=== PATIENT | female | born 1990 | race Caucasian/White ===

== ENCOUNTER 2018-04-01 02:36 | Emergency (ER) | payer OTHER ==
[~2018-04-01] VITALS: Ht 167.6 cm; Wt 54.4 kg
[~2018-04-01 02:36] MED LIST: IBUP800 PO; OXYACE5T PO; Verotin-Gr Cap1 EACH PO
== END 2018-04-01 05:14 | disposition home or self-care (01) ==
LOC: ER 02:36
DX: S71.111A Laceration without foreign body, right thigh, initial encounter (principal); F17.210 Nicotine dependence, cigarettes, uncomplicated; W26.0XXA Contact with knife, initial encounter
CPT/HCPCS: 12002; 99282

== ENCOUNTER 2019-06-11 18:56 | Emergency (ER) | payer OTHER ==
[~2019-06-11] VITALS: Ht 167.6 cm; Wt 59.4 kg
== END 2019-06-11 21:36 | disposition home or self-care (01) ==
LOC: ER 18:56
DX: M79.604 Pain in right leg (principal); V00.131A Fall from skateboard, initial encounter; F17.290 Nicotine dependence, other tobacco product, uncomplicated
CPT/HCPCS: 73562-RT; 73610; 99283-25

== ENCOUNTER 2020-07-04 20:42 | Emergency (ER) | payer OTHER ==
[~2020-07-04] VITALS: Ht 167.6 cm; Wt 59.0 kg
== END 2020-07-04 22:57 | disposition home or self-care (01) ==
LOC: ER 20:42
DX: R21 Rash and other nonspecific skin eruption (principal); Z53.21 Procedure and treatment not carried out due to patient leaving prior to being seen by health care provider
CPT/HCPCS: 99282

== ENCOUNTER 2020-12-29 20:28 | Inpatient (IN) | payer OTHER ==
[~2020-12-29] VITALS: Ht 167.6 cm; Wt 91.0 kg
[2020-12-29 21:18] LABS: BASOPHILS ABSOLUTE AUTO 0.06 K/mm3 (0.00-0.23); BASOPHILS PERCENT AUTO 0 % (0-2); EOSINOPHILS ABSOLUTE AUTO 0.06 K/mm3 (0.00-0.68); EOSINOPHILS PERCENT AUTO 0 % (0-6); Hematocrit 21.6 % (33.0-51.0); Hemoglobin 6.2 g/dL (11.5-16.0); IMMATURE GRAN ABSOLUTE AUTO 0.41 K/mm3 (0.00-0.10); IMMATURE GRAN PERCENT AUTO 3 % (0-1); LYMPHOCYTES ABSOLUTE AUTO 2.07 K/mm3 (0.84-5.20); LYMPHOCYTES PERCENT AUTO 14 % (21-46); MONOCYTES ABSOLUTE AUTO 1.07 K/mm3 (0.16-1.47); MONOCYTES PERCENT AUTO 8 % (4-13); Mean Corpuscular HGB 18.5 pg (26.0-34.0); Mean Corpuscular HGB Conc 28.7 g/dL (31.5-36.5); Mean Corpuscular Volume 65 fL (80-100); NEUTROPHILS ABSOLUTE AUTO 10.68 K/mm3 (1.96-9.15); NEUTROPHILS PERCENT AUTO 74 % (41-73); NRBC ABSOLUTE 0.21 K/mm3 (0.00-0.02); NRBC Auto 1.5 /100 WBC (0.0-0.2); Platelet Count 243 K/mm3 (150-400); RDW Coefficient Variation 18.4 % (11.7-14.2); RDW Standard Deviation 42.5 fL (35.1-46.3); Red Blood Cell Count 3.35 M/mm3 (3.80-5.20); White Blood Cell Count 14.35 K/mm3 (4.00-11.30)
[2020-12-29 23:03] LABS: Influenza A, PCR NEGATIVE (NEGATIVE); Influenza B, PCR NEGATIVE (NEGATIVE); Resp Syncytial Virus, PCR NEGATIVE (NEGATIVE); SARS-Cov-2 (COVID-19) PCR, MMC NEGATIVE (NEGATIVE)
[2020-12-29 23:56] LABS: PCO2 Cord - Arterial 54.9 mmHg (40-50); PO2 Cord - Arterial > 13 mmHg (16-20); pH Cord - Arterial 7.29 (7.28-7.35)
[2020-12-29 23:58] LABS: PCO2 Cord - Venous 48.5 mmHg (40-50); pH Umbilical Cord - Venous 7.33 (7.26-7.35)
--- NOTE | 2020-12-30 00:19 | NUR ---
BABY RECOVERING IN NURSERY, PT HAD A GENERAL, AROUSES TO VOICE AND FOLLOWS COMMANDS, BUT IS VERY GROGGY/SLEEPY. MOVING ALL EXTREMETIES. PT UNDERWEAR WERE LEFT ON HER AND RN CUT THEM OFF. AT 0020 SECOND UNIT OF BLOOD IN PER DR SMITH AND NS OPENED UP. AT 0035 TUBING CLEAR AND STAT CBC ORDERED.
--- NOTE | 2020-12-30 00:37 | NUR ---
dr pérez in pacu, report to give 3rd unit of blood if the now stat cbc hemaglogin is below 7, if 7 or above hold the 3rd unit
--- NOTE | 2020-12-30 01:33 | NUR ---
PACU TRANS: IN PACU AT 0019 DR SMITH LEFT AT 0024 OUT TO ROOM AT 0121 BY BRENNAN ZUÑIGA RNC, REPORT TO STANFORD WHITNEY RN, PT TRANSFERED TO ROOM 130 VIA BED
[2020-12-30 02:15] LABS: BASOPHILS ABSOLUTE AUTO 0.11 K/mm3 (0.00-0.23); BASOPHILS PERCENT AUTO 1 % (0-2); EOSINOPHILS ABSOLUTE AUTO 0.02 K/mm3 (0.00-0.68); EOSINOPHILS PERCENT AUTO 0 % (0-6); Hematocrit 26.6 % (33.0-51.0); Hemoglobin 7.6 g/dL (11.5-16.0); IMMATURE GRAN ABSOLUTE AUTO 0.61 K/mm3 (0.00-0.10); IMMATURE GRAN PERCENT AUTO 4 % (0-1); LYMPHOCYTES ABSOLUTE AUTO 1.53 K/mm3 (0.84-5.20); LYMPHOCYTES PERCENT AUTO 9 % (21-46); MONOCYTES ABSOLUTE AUTO 0.58 K/mm3 (0.16-1.47); MONOCYTES PERCENT AUTO 3 % (4-13); Mean Corpuscular HGB 20.5 pg (26.0-34.0); Mean Corpuscular HGB Conc 28.6 g/dL (31.5-36.5); NEUTROPHILS ABSOLUTE AUTO 14.08 K/mm3 (1.96-9.15); NEUTROPHILS PERCENT AUTO 83 % (41-73); NRBC ABSOLUTE 0.27 K/mm3 (0.00-0.02); NRBC Auto 1.6 /100 WBC (0.0-0.2); RDW Coefficient Variation 21.9 % (11.7-14.2); RDW Standard Deviation 55.8 fL (35.1-46.3); White Blood Cell Count 16.93 K/mm3 (4.00-11.30)
[2020-12-30 02:16] LABS: Mean Corpuscular Volume 72 fL (80-100); Platelet Count 202 K/mm3 (150-400)
[2020-12-30 06:17] LABS: BASOPHILS ABSOLUTE AUTO 0.08 K/mm3 (0.00-0.23); BASOPHILS PERCENT AUTO 0 % (0-2); EOSINOPHILS PERCENT AUTO 0 % (0-6); Hematocrit 27.7 % (33.0-51.0); Hemoglobin 8.2 g/dL (11.5-16.0); IMMATURE GRAN ABSOLUTE AUTO 0.96 K/mm3 (0.00-0.10); IMMATURE GRAN PERCENT AUTO 5 % (0-1); LYMPHOCYTES ABSOLUTE AUTO 1.54 K/mm3 (0.84-5.20); LYMPHOCYTES PERCENT AUTO 8 % (21-46); MONOCYTES ABSOLUTE AUTO 0.67 K/mm3 (0.16-1.47); MONOCYTES PERCENT AUTO 3 % (4-13); Mean Corpuscular HGB 20.6 pg (26.0-34.0); Mean Corpuscular HGB Conc 29.6 g/dL (31.5-36.5); Mean Corpuscular Volume 70 fL (80-100); NEUTROPHILS PERCENT AUTO 84 % (41-73); NRBC ABSOLUTE 0.37 K/mm3 (0.00-0.02); NRBC Auto 1.8 /100 WBC (0.0-0.2); Platelet Count 233 K/mm3 (150-400); RDW Coefficient Variation 21.3 % (11.7-14.2); RDW Standard Deviation 52.4 fL (35.1-46.3); Red Blood Cell Count 3.98 M/mm3 (3.80-5.20); White Blood Cell Count 20.35 K/mm3 (4.00-11.30)
--- NOTE | 2020-12-30 13:53 | NUR ---
UPON ENTERING ROOM PT WAS TEARFUL DUE TO CPS REMOVING HER BABY FROM HER CARE, JUST MINUTES PRIOR. PT STATED THAT SHE FELT LIKE SHE PASSED A BLOOD CLOT. CLOT NOTED DURING PAD CHANGE AND SET ASIDE FOR RN TO LOOK AT. RN NOTIFIED.
--- NOTE | 2020-12-30 14:31 | NUR ---
12/30/20 1431 Destiny Caban VERIFICATIONS: EDIT CHART.
--- NOTE | 2020-12-31 00:31 | NUR ---
pts bales catheter out at 0000 for shower and ambulation, 2000cc out of bales bag
--- NOTE | 2020-12-31 03:26 | NUR ---
STUDIO MODEL CARTARIDGE WASTED WITH GENNA AMIN. 15CC LEFT IN VARTRIDGE VIAL WHEN DUMPED INTO WASTE BUCKET
[2020-12-31 06:10] LABS: HIV SCREEN 4TH GENERATION WRFX Non Reactive (Non Reactive)
--- NOTE | 2020-12-31 18:39 | NUR ---
PT HAD RCS X2 DAYS AGO, PT PERFORMING KINZA CAREAND AMBULATIN TO RESTROOM, ENCOURAGED PT TO COUGH AND DEEP BREATH. PT MEDICATED X2 THIS SHIFT AND AMANDA NAUSEA, TOLORATING PO FOOD AND FLUID WELL. PT C/S INCISION AND STERI STRIPS IN PLACE.
[2021-01-01 05:39] LABS: BASOPHILS PERCENT AUTO 1 % (0-2); EOSINOPHILS ABSOLUTE AUTO 0.34 K/mm3 (0.00-0.68); EOSINOPHILS PERCENT AUTO 2 % (0-6); Hematocrit 24.5 % (33.0-51.0); Hemoglobin 7.1 g/dL (11.5-16.0); IMMATURE GRAN ABSOLUTE AUTO 0.41 K/mm3 (0.00-0.10); IMMATURE GRAN PERCENT AUTO 3 % (0-1); LYMPHOCYTES ABSOLUTE AUTO 2.73 K/mm3 (0.84-5.20); LYMPHOCYTES PERCENT AUTO 19 % (21-46); MONOCYTES ABSOLUTE AUTO 1.01 K/mm3 (0.16-1.47); MONOCYTES PERCENT AUTO 7 % (4-13); Mean Corpuscular HGB 20.6 pg (26.0-34.0); Mean Corpuscular Volume 71 fL (80-100); NEUTROPHILS ABSOLUTE AUTO 9.72 K/mm3 (1.96-9.15); NEUTROPHILS PERCENT AUTO 68 % (41-73); NRBC ABSOLUTE 0.13 K/mm3 (0.00-0.02); NRBC Auto 0.9 /100 WBC (0.0-0.2); Platelet Count 251 K/mm3 (150-400); RDW Coefficient Variation 22.3 % (11.7-14.2); RDW Standard Deviation 53.4 fL (35.1-46.3); Red Blood Cell Count 3.45 M/mm3 (3.80-5.20); White Blood Cell Count 14.31 K/mm3 (4.00-11.30)
[2021-01-01 05:58] LABS: Mean Platelet Volume 10.8 fL (9.1-12.4)
[2021-01-01] MEDS ORDERED: Percocet 5-3251 EACH PO (16:06)
[2021-01-01] MEDS ORDERED: IBUP800 PO (16:06)
--- NOTE | 2021-01-01 16:30 | NUR ---
PT D/C HOSPITAL, D/C WNL, DISCHARGE INSTRUCTIONS REVIEWED AND SIGNED, PT ENCOURAGED TO RETURN 01/03/21 FOR FOLLOW UP APPOINTMENT AND TO CALL AND SCHDULE APPOINTMENT WITH FOR POSTPARTUME CARE. PERSRIPTION SENT WITH PT FOR PERCOCET. PT FATHER PROVIDING TRANSPORTATION.
--- NOTE | 2021-01-03 13:22 | NUR ---
PPFU SCHEDULED FOR TODAY. PT DID NOT SHOW UP, DID NOT CALL. RN CALLED PHONE NUMBER ON FILE, NO ANSWER, UNABLE TO LEAVE VOICEMAIL BECAUSE THE VOICEMAIL BOX IS NOT SET UP.
== END 2021-01-01 16:16 | disposition home or self-care (01) | DRG 787 ==
LOC: OBS 20:28 → BC 20:29 → OBS 21:10 → BC 21:11
PROVIDERS: ADMIT Obstetrics & Gynecology
PROC: 10D00Z1 Extraction of Products of Conception, Low, Open Approach (ICD-10-PCS; principal; 2020-12-29 23:00)
DX: O45.93 Premature separation of placenta, unspecified, third trimester (principal); O99.324 Drug use complicating childbirth; O34.211 Maternal care for low transverse scar from previous cesarean delivery; Z37.0 Single live birth; Z3A.37 37 weeks gestation of pregnancy; O99.334 Smoking (tobacco) complicating childbirth; F17.210 Nicotine dependence, cigarettes, uncomplicated; O99.02 Anemia complicating childbirth; D64.9 Anemia, unspecified; F19.10 Other psychoactive substance abuse, uncomplicated
CPT/HCPCS: 0241U; 36415; 36430; 76805; 82803; 85025; 85460; 86317; 86592; 86762; 86850; 86900; 86901; 86923; 87389; 96372; A9270; J0290; J0330; J0690; J1100; J2250; J2405; J2590; J2704; J2710; J2765; J2791; J3010; J3430; J7030; J7120; P9016

== ENCOUNTER 2024-01-21 12:55 | Inpatient (IN) | payer OTHER ==
[2024-01-21] VITALS (21 sets, daily range): BP systolic 118–159; BP diastolic 63–93
[~2024-01-21] VITALS: Ht 167.6 cm; Wt 80.1 kg
[2024-01-21] MEDS ORDERED: Tranexamic Acid 100 ML IV ONE (13:50)
[2024-01-21] MEDS ORDERED: CeFAZolin Sodium 2,000 MG in NS 100 ML IV ONE (13:50)
[2024-01-21 13:59] LABS: U Amphetamine Screen DETECTED; U Barbituate Screen Not Detected; U Benzodiazapine Screen Not Detected; U Buprenorphine Screen Not Detected; U Cannabinoids Screen Not Detected; U Cocaine Screen Not Detected; U Methadone Screen Not Detected; U Methamphetamine Screen DETECTED; U Opiates Screen Not Detected; U Oxycodone Screen Not Detected; U Phencyclidine Screen Not Detected
[2024-01-21] MEDS ORDERED: Bupivacaine HCl 2.5 MG/ML 10ML P/F Injection XX SCH (14:15)
[2024-01-21] MEDS ORDERED: Metoclopramide HCl 5MG / ML 2ML Vial IV ONE (14:15)
[2024-01-21] MEDS ORDERED: Lactated Ringer's 1,000 ML IV PRN (14:15)
[2024-01-21] MEDS ORDERED: Castor Oil 59.146 ML BTL TOP SCH (14:15)
[2024-01-21] MEDS ORDERED: Methylergonovine Maleate 0.2MG / ML 1ML Amp IM SCH (14:15)
[2024-01-21] MEDS ORDERED: Citric Acid/Sodium Citrate 30 ML BTL PO SCH (14:15)
[2024-01-21] MEDS ORDERED: Misoprostol 200 MCG Tab PR SCH (14:15)
[2024-01-21] MEDS ORDERED: LR Oxytocin 20 Units 1,000 ML IV SCH ×3 (14:15→16:40)
[2024-01-21] MEDS ORDERED: Bupivacaine 0.5% HCl 5 MG/ML 30MLVIAL XX SCH (14:15)
[2024-01-21] MEDS ORDERED: Lidocaine HCl 1% 30 ML SDV XX SCH (14:15)
[2024-01-21] MEDS ORDERED: Oxytocin 10 Unit / ML Vial IM SCH (14:15)
[2024-01-21 14:26] LABS: BASOPHILS PERCENT AUTO 1 % (0-2); EOSINOPHILS ABSOLUTE AUTO 0.23 K/mm3 (0.00-0.68); EOSINOPHILS PERCENT AUTO 2 % (0-6); Hematocrit 32.5 % (33.0-51.0); Hemoglobin 9.8 g/dL (11.5-16.0); IMMATURE GRAN ABSOLUTE AUTO 0.12 K/mm3 (0.00-0.10); IMMATURE GRAN PERCENT AUTO 1 % (0-1); LYMPHOCYTES ABSOLUTE AUTO 2.48 K/mm3 (0.84-5.20); LYMPHOCYTES PERCENT AUTO 18 % (21-46); MONOCYTES ABSOLUTE AUTO 1.13 K/mm3 (0.16-1.47); MONOCYTES PERCENT AUTO 8 % (4-13); Mean Corpuscular HGB 21.7 pg (26.0-34.0); Mean Corpuscular HGB Conc 30.2 g/dL (31.5-36.5); Mean Corpuscular Volume 72 fL (80-100); NEUTROPHILS ABSOLUTE AUTO 10.04 K/mm3 (1.96-9.15); NEUTROPHILS PERCENT AUTO 71 % (41-73); NRBC ABSOLUTE 0.04 K/mm3 (0.00-0.02); NRBC Auto 0.3 /100 WBC (0.0-0.2); Platelet Count 292 K/mm3 (150-400); RDW Coefficient Variation 17.2 % (11.7-14.2); RDW Standard Deviation 43.6 fL (35.1-46.3); Red Blood Cell Count 4.52 M/mm3 (3.80-5.20)
[2024-01-21 14:37] LABS: Bun/Creatinine Ratio 17.8 (12.0-20.0); Calcium, Blood 8.3 mg/dL (8.5-10.1); Creatinine, Blood 0.56 mg/dL (0.40-1.00); Potassium, Blood 3.2 mmol/L (3.5-5.5)
[2024-01-21] MEDS ORDERED: Oxytocin 10 Unit / ML Vial ONE ×3 (14:41→15:04)
[2024-01-21] MEDS ORDERED: Ondansetron HCl 2 MG / ML 2ML Vial ONE (14:41)
[2024-01-21] MEDS ORDERED: Metoclopramide HCl 5MG / ML 2ML Vial ONE (14:41)
[2024-01-21] MEDS ORDERED: Dexamethasone Sod Phos 10 MG/ML 1ML VIAL ONE (14:41)
[2024-01-21] MEDS ORDERED: Midazolam HCl 1MG / ML 2ML Vial ONE (14:42)
[2024-01-21] MEDS ORDERED: FentaNYL Citrate 50 MCG/ML 2 ML Injection ONE (14:42)
[2024-01-21] MEDS ORDERED: Methylergonovine Maleate 0.2MG / ML 1ML Amp ONE (14:43)
[2024-01-21] MEDS ORDERED: propofoL 0 ML IV ONE (15:04)
[2024-01-21] MEDS ORDERED: Promethazine HCl 25 MG Tab PO PRN (16:30)
[2024-01-21] MEDS ORDERED: Rho(D) Immune Globulin 300 MCG / SYR IM SCH (16:35)
[2024-01-21] MEDS ORDERED: Carboprost Tromethamine 250 MCG/ML 1ML Amp IM PRN (16:35)
[2024-01-21] MEDS ORDERED: OxyCODONE HCL 5 MG TAB PO PRN ×2 (16:35→16:40)
[2024-01-21] MEDS ORDERED: Simethicone 80 MG Chew PO PRN (16:35)
[2024-01-21] MEDS ORDERED: Misoprostol 200 MCG Tab PR PRN (16:40)
[2024-01-21] MEDS ORDERED: Ondansetron HCl 2 MG / ML 2ML Vial IV PRN (16:40)
[2024-01-21] MEDS ORDERED: Methylergonovine Maleate 0.2 MG Tab PO PRN (16:40)
[2024-01-21] MEDS ORDERED: Lanolin Cream TOP PRN (16:40)
[2024-01-21] MEDS ORDERED: Ketorolac Tromethamine 30mg Vial IV SCH (17:00)
[2024-01-21] MEDS ORDERED: NIFEdipine 30 MG TabCR PO ONE (18:00)
--- NOTE | 2024-01-21 18:15 | NUR ---
NOTIFIED DR. DELGADILLO AT 1748 THAT PATIENT'S BLOOD PRESSURES ARE CONSISTENTLY RUNNING 140S/90S. ORDERS RECEIVED FOR ADDITONAL LABWORK AND TO START PATIENT ON NIFEDIPINE 30 MG XL.
[2024-01-21 18:38] LABS: Albumin, Blood 1.9 g/dL (3.4-5.0); Albumin/Globulin Ratio 0.5 (0.8-1.8); Bilirubin, Total 0.3 mg/dL (0.1-1.0); Bun/Creatinine Ratio 16.2 (12.0-20.0); Calcium, Blood 7.8 mg/dL (8.5-10.1); Creatinine, Blood 0.5 mg/dL (0.40-1.00); Globulin, Blood 3.6 g/dL (2.2-4.0); Potassium, Blood 3.1 mmol/L (3.5-5.5); Total Protein, Blood 5.5 g/dL (6.4-8.2)
[2024-01-21 19:25] LABS: Creatinine, Urine Random 75.2 mg/dL (27.00-270.00); Protein, Urine Random 54.3 mg/dL (0.0-11.9); Protein/Creat Ratio, Ur Random 0.7
[2024-01-22] MEDS ORDERED: Ibuprofen 400 MG Tab PO SCH
[2024-01-22] MEDS ORDERED: Acetaminophen 500 MG Tab PO SCH
[2024-01-22 04:06] VITALS: BP 137/82
[2024-01-22 06:30] LABS: BASOPHILS ABSOLUTE AUTO 0.09 K/mm3 (0.00-0.23); BASOPHILS PERCENT AUTO 1 % (0-2); EOSINOPHILS ABSOLUTE AUTO 0.31 K/mm3 (0.00-0.68); EOSINOPHILS PERCENT AUTO 2 % (0-6); Hematocrit 32.7 % (33.0-51.0); Hemoglobin 9.9 g/dL (11.5-16.0); IMMATURE GRAN ABSOLUTE AUTO 0.09 K/mm3 (0.00-0.10); IMMATURE GRAN PERCENT AUTO 1 % (0-1); LYMPHOCYTES ABSOLUTE AUTO 2.56 K/mm3 (0.84-5.20); LYMPHOCYTES PERCENT AUTO 17 % (21-46); MONOCYTES ABSOLUTE AUTO 1.47 K/mm3 (0.16-1.47); MONOCYTES PERCENT AUTO 10 % (4-13); Mean Corpuscular HGB 21.6 pg (26.0-34.0); Mean Corpuscular HGB Conc 30.3 g/dL (31.5-36.5); Mean Corpuscular Volume 71 fL (80-100); Mean Platelet Volume 11.4 fL (9.1-12.4); NEUTROPHILS PERCENT AUTO 71 % (41-73); Platelet Count 275 K/mm3 (150-400); RDW Coefficient Variation 17.1 % (11.7-14.2); RDW Standard Deviation 42.8 fL (35.1-46.3); Red Blood Cell Count 4.58 M/mm3 (3.80-5.20); White Blood Cell Count 15.32 K/mm3 (4.00-11.30)
[2024-01-22] MEDS ORDERED: Dexamethasone Sod Phos 10 MG/ML 1ML VIAL ONE (06:51)
[2024-01-22] MEDS ORDERED: propofoL 20 ML IV ONE (06:51)
[2024-01-22] MEDS ORDERED: FentaNYL Citrate 50 MCG/ML 2 ML Injection ONE (06:51)
[2024-01-22] MEDS ORDERED: Midazolam HCl 1MG / ML 2ML Vial ONE (06:51)
[2024-01-22] MEDS ORDERED: SuccINYLCHOLINE Chloride 100 MG/5 ML 5MLSYR ONE (06:51)
[2024-01-22] MEDS ORDERED: Ondansetron HCl 2 MG / ML 2ML Vial ONE (06:51)
[2024-01-22] MEDS ORDERED: Rocuronium Bromide 10 MG/ML 5ML Injection IV ONE (06:51)
[2024-01-22] MEDS ORDERED: Sugammadex Sodium 200 MG/2ML SDV (100 MG/ML) ONE (07:59)
[2024-01-22 08:00] VITALS: BP 133/94
[2024-01-22] MEDS ORDERED: Ketorolac Tromethamine 30mg Vial IV ONE (08:35)
[2024-01-22] MEDS ORDERED: Phenylephrine HCl 100 MCG/ML-NS 10MLSYR (1MG/10ML) ONE (08:54)
[2024-01-22] MEDS ORDERED: Prenatal Vit/FE Fumarate/FA 1 Tab PO SCH (09:00)
[2024-01-22] MEDS ORDERED: NIFEdipine 30 MG TabCR PO SCH (09:00)
[2024-01-22] MEDS ORDERED: Polyethylene Glycol 3350 17 gm PO SCH (09:00)
--- NOTE | 2024-01-22 11:43 | NUR ---
CPS NOTE JARETT BARRETT AND SANDIP PATEL, CPS REPRESENTATIVES, HERE TO GATHER INFORMATION AND SPEAK WITH PT. PT WAS NOT AGREEABLE TO SPEAK WITH THEM. ACCORDING TO THEM SHE PULLED HER COVERS OVER HER HEAD AND SAID SHE WANTED HER MOTHER BEFORE SPEAKING WITH THEM. THEY WERE UPDATED ON NB IN NURSERY, LEFT UNIT FOR NOW TO SPEAK WITH CARPET INSTALLATION SPECIALIST AND STATED THEY WOULD BE BACK THIS AFTERNOON FOR FURTHER EVAL. NO PLANS OR RESTRICTIONS IN PLACE AT THIS TIME. RN TO NOTIFY WORKERS IF NB TO GET DISCHARGED FROM NURSERY TO [facility].
[2024-01-22 12:59] VITALS: BP 131/84
--- NOTE | 2024-01-22 13:30 | NUR ---
CPS NOTE CPS REPRESENTATIVES BACK TO SPEAK WITH PT, STATED THEY DID NEED ANYTHING FROM THIS RN. GOING IN TO ROOM TO TALK WITH PT.
--- NOTE | 2024-01-22 14:58 | NUR ---
Pt sleeping soundly, did not wake when RN entered room.
[2024-01-22 16:07] VITALS: BP 130/86
--- NOTE | 2024-01-22 17:00 | NUR ---
CPS NOTE CPS workers back to fill out assessment/plan paperwork for [facility] staff. NB is restricted to nursery, may not room in with mother and may not breastfeed. No visitor restrictions into nursery. CPS will return in AM with further plan of custody. Copy of paperwork in both mother and baby's chart.
[2024-01-22 19:16] VITALS: BP 124/85
[2024-01-22 23:51] VITALS: BP 136/85
[2024-01-23 04:38] VITALS: BP 143/84
[2024-01-23 08:40] VITALS: BP 138/94
--- NOTE | 2024-01-23 09:05 | NUR ---
Pt dozing, snoring. Did not wake when RN in room.
--- NOTE | 2024-01-23 11:21 | NUR ---
Pt sleeping soundly, did not wake when RN entered room.
--- NOTE | 2024-01-23 12:45 | NUR ---
CPS Shan and Augustina here again to speak with pt. Report they were still trying to locate the FOB to come to hospital and sign paternity papers if he desired. RN let them know that plan is to discharge pt to boarder status this afternoon and that paternity papers cannot be signed after she is discharged.
[2024-01-23 13:02] VITALS: BP 138/95
[2024-01-23 16:48] VITALS: BP 131/91
[2024-01-23 19:37] VITALS: BP 133/86
[2024-01-23 19:59] VITALS: BP 127/83
[2024-01-24 00:15] VITALS: BP 142/87
[2024-01-24 05:35] VITALS: BP 146/73
[2024-01-24 08:03] VITALS: BP 135/83
[2024-01-24 11:00] VITALS: BP 164/85
[2024-01-24 11:15] VITALS: BP 131/83
[2024-01-24 15:57] VITALS: BP 141/95
--- NOTE | 2024-01-27 08:56 | NUR ---
PT NO SHOWED FOR SCHEDULED PPFU. NO RETURNED PHONE CALL OF THIS NOTE.
== END 2024-01-24 16:10 | disposition home or self-care (01) | DRG 784 ==
LOC: OBS 12:55 → BC 13:05 → OBS 13:06 → BC 13:08
PROVIDERS: ADMIT Obstetrics & Gynecology
PROC: 10D00Z1 Extraction of Products of Conception, Low, Open Approach (ICD-10-PCS; principal; 2024-01-21 14:00)
PROC: 0UB70ZZ Excision of Bilateral Fallopian Tubes, Open Approach (ICD-10-PCS; 2024-01-21 14:00)
DX: O36.5930 Maternal care for other known or suspected poor fetal growth, third trimester, not applicable or unspecified (principal); O99.324 Drug use complicating childbirth; O34.211 Maternal care for low transverse scar from previous cesarean delivery; Z3A.38 38 weeks gestation of pregnancy; Z37.0 Single live birth; O99.02 Anemia complicating childbirth; F15.10 Other stimulant abuse, uncomplicated; O26.893 Other specified pregnancy related conditions, third trimester; O77.0 Labor and delivery complicated by meconium in amniotic fluid; Z67.41 Type O blood, Rh negative; Z30.2 Encounter for sterilization; O16.5 Unspecified maternal hypertension, complicating the puerperium; O99.334 Smoking (tobacco) complicating childbirth; F17.200 Nicotine dependence, unspecified, uncomplicated
CPT/HCPCS: 36415; 80048; 80053; 82570; 84156; 85025; 85460; 86850; 86900; 86901; 86923; 88302; A9270; J0330; J0690; J1100; J1885; J2210; J2250; J2371; J2405; J2590; J2704; J2765; J2791; J3010; J7120

== ENCOUNTER → 2024-01-21 | Outpatient (CLI) | payer OTHER ==
[~2024-01-21] MED LIST changes: +Percocet 5-3251 EACH PO
== END | disposition home or self-care (01) ==
LOC: LAB SHORT 12:30 → LAB 12:30
DX: O09.93 Supervision of high risk pregnancy, unspecified, third trimester (principal); Z3A.38 38 weeks gestation of pregnancy
CPT/HCPCS: 87081; 87150